=== PATIENT | female | born 1985 | race Caucasian/White ===

== ENCOUNTER 2019-04-07 14:25 | Emergency (ER) | payer BC ==
[2019-04-07 14:47] VITALS: BP 148/82; PULSE 60
--- NOTE | 2019-04-07 14:59 | EDM.PDOC ---
ED HPI GENERAL MEDICAL PROBLEM - General Chief Complaint: Lower Extremity Injury/Pain Stated Complaint: LEFT HIP INJURY Time Seen by Provider: 04/07/19 14:45 Source of Information: Reports: Patient History Limitations: Reports: No Limitations - History of Present Illness INITIAL COMMENTS - FREE TEXT/NARRATIVE: 33 YO WF presents to ER complaining of left hip pain after falling off while tubing in the [place] earlier today. Pt reports she let go of the tube and skipped across the [place] on her left side causing immediate pain and the sensation of swelling to the left hip and LLQ of her abdomen. Pt denies any other injuries. Pt denies shortness of breath, no chest pain, no head or neck pain. Pt able to ambulate into ER with difficulty. Pt complains of her left hip but has full active and passive ROM of hip without pain. Pt is tender on abdominal wall with pain on truck rotation or hip flexion on left side. Onset: Today Duration: Hour(s): (1) Location: Reports: Lower Extremity, Left Quality: Reports: Ache Severity: Severe Improves with: Reports: Rest Worsens with: Reports: Movement Context: Reports: Activity Associated Symptoms: Reports: No Other Symptoms. Denies: Chest Pain, Headaches , Nausea/Vomiting, Shortness of Breath Left Hip Pain Score (Numeric/FACES): 8 - Related Data Allergies Allergy/AdvReac Type Severity Reaction Status Date / Time No Known Allergies Allergy Verified 04/07/19 14:38 Home Meds: Home Meds Levothyroxine 75 mcg PO DAILY 04/07/19 [History] Meloxicam 15 mg PO DAILY 04/07/19 [History] Review of Systems - Review of Systems Review Of Systems: See Below Constitutional: Reports: No Symptoms Eyes: Reports: No Symptoms Ears: Reports: No Symptoms Nose: Reports: No Symptoms Mouth/Throat: Reports: No Symptoms Respiratory: Reports: No Symptoms Cardiovascular: Reports: No Symptoms GI/Abdominal: Reports: No Symptoms Genitourinary: Reports: No Symptoms Musculoskeletal: Reports: Leg Pain Skin: Reports: No Symptoms Neurological: Reports: No Symptoms Psychiatric: Reports: No Symptoms ED EXAM, GENERAL - Physical Exam Exam: See Below Exam Limited By: No Limitations General Appearance: Alert, WD/WN, Mild Distress Eye Exam: Bilateral Eye: PERRL Throat/Mouth: Normal Inspection, Normal Lips, Normal Teeth, Normal Gums, Normal Oropharynx, Normal Voice, No Airway Compromise Head: Atraumatic, Normocephalic Neck: Normal Inspection, Supple, Non-Tender, Full Range of Motion Respiratory/Chest: No Respiratory Distress, Lungs Clear, Normal Breath Sounds, No Accessory Muscle Use, Chest Non-Tender Cardiovascular: Normal Peripheral Pulses, Regular Rate, Rhythm, No Edema, No Gallop, No JVD, No Murmur, No Rub GI/Abdominal: Normal Bowel Sounds, Soft, No Organomegaly, No Distention, No Abnormal Bruit, No Mass, Guarding, Rebound, Tender (LLQ tenderness) Back Exam: Normal Inspection, Full Range of Motion, NT Extremities: Normal Inspection, Normal Range of Motion, Non-Tender, Normal Capillary Refill, No Pedal Edema Neurological: Alert, Oriented, CN II-XII Intact, Normal Cognition, Normal Gait, Normal Reflexes, No Motor/Sensory Deficits Psychiatric: Normal Affect, Normal Mood, Anxious Skin Exam: Warm, Dry, Intact, Normal Color, No Rash Lymphatic: No Adenopathy Course - Vital Signs Last Recorded V/S: Last Vital Signs Temp 36.9 C 04/07/19 14:41 Pulse 60 04/07/19 14:41 Resp 14 04/07/19 14:41 BP 148/82 H 04/07/19 14:41 Pulse Ox 97 04/07/19 14:41 - Orders/Labs/Meds Orders: Active Orders 24 hr Category Date Time Status Peripheral IV Care [RC] . DIRECTED Care 04/07/19 15:00 Active Acetaminophen/HYDROcodone [[place] 325-10 MG] Med 04/07/19 16:30 Once 10 tab PO ONETIME ONE Sodium Chloride 0.9% [Normal Saline] 50 ml Med 04/07/19 15:45 Active IV ASDIRECTED Sodium Chloride 0.9% [Saline Flush] Med 04/07/19 15:00 Active 10 ml FLUSH Q8HR PRN Peripheral IV Insertion Adult [OM.PC] Routine Oth 04/07/19 15:00 Ordered Medication Orders Hydrocodone Bitart/Acetaminophen ([place] 325-10 Mg) 10 tab PO ONETIME ONE Stop: 04/07/19 16:31 Sodium Chloride (Normal Saline) 50 mls @ 200 mls/hr IV ASDIRECTED TANNA Last Admin: 04/07/19 16:04 Dose: 200 mls/hr Sodium Chloride (Saline Flush) 10 ml FLUSH Q8HR PRN PRN Reason: keep vein open Last Admin: 04/07/19 15:10 Dose: 10 ml Admin: 04/07/19 15:00 Dose: 10 ml Labs: Laboratory Tests 04/07/19 04/07/19 04/07/19 Range/Units 15:25 15:47 15:47 WBC 9.81 (5.00-10.00) 10^3/uL RBC 3.85 (3.80-5.50) 10^6/uL Hgb 12.0 (12.0-16.0) g/dL Hct 35.6 L (37.0-47.0) % MCV 92.5 H (82.0-92.0) fL MCH 31.2 H (27.0-31.0) pg MCHC 33.7 (32.0-36.0) g/dL RDW 12.7 (11.5-14.5) % Plt Count 204 (150-400) 10^3/uL MPV 11.2 H (7.4-10.4) fL Immature Gran % (Auto) 0.2 (0.0-5.0) % Neut % (Auto) 67.5 (50.0-70.0) % Lymph % (Auto) 17.2 L (20.0-40.0) % [place] % (Auto) 5.9 (2.0-8.0) % Eos % (Auto) 8.8 H (1.0-3.0) % Baso % (Auto) 0.4 (0.0-1.0) % Immature Gran # (Auto) 0.02 (0.00-0.50) 10^3/uL Neut # (Auto) 6.62 (2.50-7.00) 10^3/uL Lymph # (Auto) 1.69 (1.00-4.00) 10^3/uL [place] # (Auto) 0.58 (0.10-0.80) 10^3/uL Eos # (Auto) 0.86 H (0.10-0.30) 10^3/uL Baso # (Auto) 0.04 (0.00-0.10) 10^3/uL Sodium 144 (136-145) mmol/L Potassium 3.9 (3.3-5.3) mmol/L Chloride 111 (98-115) mmol/L Carbon Dioxide 25.9 (21.0-32.0) mmol/L Anion Gap 11.0 (5-15) mmol/L BUN 10 (6-25) mg/dL Creatinine 0.68 (0.51-1.17) mg/dL Est Cr Clr Drug Dosing 92.20 mL/min Estimated GFR (MDRD) > 60 mL/min Glucose 97 (75 - 99) mg/dL Calcium 8.6 L (8.7-10.3) mg/dL Total Bilirubin 0.2 (0.2-1.0) mg/dL AST 74 H (15-37) U/L ALT 86 H (12-78) U/L Alkaline Phosphatase 74 (46-116) IU/L Total Protein 6.2 L (6.4-8.2) g/dL Albumin 3.51 (3.00-4.80) g/dL HCG, Qual Negative (NEGATIVE) Specimen Type Urinvoid Urine Color Light yellow (YELLOW) Urine Appearance Clear (CLEAR) Urine pH 6.5 (5.0-9.0) Ur Specific [place] <= 1.005 (1.005-1.030) Urine Protein Negative (NEGATIVE) mg/dL Urine Glucose (UA) Negative (NEGATIVE) mg/dL Urine Ketones Negative (NEGATIVE) mg/dL Urine Occult Blood Negative (NEGATIVE) Urine Nitrite Negative (NEGATIVE) Urine Bilirubin Negative (NEGATIVE) Urine Urobilinogen 0.2 (0.2-1.0) E.U./dL Ur Leukocyte Esterase Negative (NEGATIVE) Urine RBC 0-5 (0-5) /HPF Urine WBC 0-5 (0-5) /HPF Ur Epithelial Cells Moderate H /LPF Urine Bacteria Not seen (NONE TO FEW) /HPF Meds: Medications Generic Name Dose Route Start Last Admin Trade Name Freq PRN Reason Stop Dose Admin Hydrocodone Bitart/Acetaminophen 10 tab 04/07/19 16:30 [place] 325-10 Mg PO 04/07/19 16:31 ONETIME ONE Sodium Chloride 50 mls @ 200 mls/hr 04/07/19 15:45 04/07/19 16:04 Normal Saline IV 200 mls/hr ASDIRECTED TANNA Administration Sodium Chloride 10 ml 04/07/19 15:00 04/07/19 15:10 Saline Flush FLUSH 10 ml Q8HR PRN Administration keep vein open Discontinued Medications Generic Name Dose Route Start Last Admin Trade Name Sheldonq PRN Reason Stop Dose Admin Hydromorphone HCl 1 mg 04/07/19 15:04 04/07/19 15:08 Dilaudid IVPUSH 04/07/19 15:05 1 mg ONETIME ONE Administration Iopamidol 100 ml 04/07/19 15:35 04/07/19 16:04 Isovue-370 (76%) IV 04/07/19 15:36 75 ml ONETIME ONE Administration Ondansetron HCl 4 mg 04/07/19 15:04 04/07/19 15:05 Zofran IVPUSH 04/07/19 15:05 4 mg ONETIME ONE Administration - Radiology Interpretation Free Text/Narrative:: L-spine- NAD; no fx Pelvis- NAD; no fx L hip- NAD; no fx CT abd/pelvis- NAD Departure - Departure Time of Disposition: 16:35 Disposition: Home, Self-Care 01 Condition: Good Clinical Impression: Strain of abdominal wall Qualifiers: Encounter type: initial encounter Qualified Code(s): S39.011A - Strain of muscle, fascia and tendon of abdomen, initial encounter - Discharge Information Instructions: Pain Medicine Instructions, [id number], Muscle Strain, Easy-to- Read Referrals: Sonya Restrepo, MARKETING CONTENT COORDINATOR [Nurse Practitioner] - Forms: ED Department Discharge Additional Instructions: 1. discharge home 2. hydrocodone 10/325 1 tablet Q6 PRN 3. continue melxican 4. follow up in clinic early next week for recheck 5. return to ER fdor worsening symptoms 6. ice to hip- area may bruise - My Orders Last 24 Hours: My Active Orders 04/07/19 15:00 Peripheral IV Care [RC] . DIRECTED Sodium Chloride 0.9% [Saline Flush] 10 ml FLUSH Q8HR PRN Peripheral IV Insertion Adult [OM.PC] Routine 04/07/19 15:45 Sodium Chloride 0.9% [Normal Saline] 50 ml IV ASDIRECTED 04/07/19 16:30 Acetaminophen/HYDROcodone [[place] 325-10 MG] 10 tab PO ONETIME ONE - Assessment/Plan Last 24 Hours: My Active Orders 04/07/19 15:00 Peripheral IV Care [RC] . DIRECTED Sodium Chloride 0.9% [Saline Flush] 10 ml FLUSH Q8HR PRN Peripheral IV Insertion Adult [OM.PC] Routine 04/07/19 15:45 Sodium Chloride 0.9% [Normal Saline] 50 ml IV ASDIRECTED 04/07/19 16:30 Acetaminophen/HYDROcodone [[place] 325-10 MG] 10 tab PO ONETIME ONE Assessment:: 1. abdominal wall strain 2. elevated LFt's - pt aware and this has been addressed as outpatient in the recent past Plan: 1. discharge home 2. hydrocodone 10/325 1 tablet Q6 PRN 3. continue melxican 4. follow up in clinic early next week for recheck 5. return to ER fdor worsening symptoms 6. ice to hip- area may bruise
[2019-04-07] MEDS: Sodium Chloride 0.9% 10 ML Syringe FLUSH PRN ×2 (15:00→15:10)
[2019-04-07] MEDS ORDERED: Ondansetron 4 MG/2 ML SDV IVPUSH ONE (15:04)
[2019-04-07] MEDS ORDERED: HYDROmorphone 1 MG/ML Syringe IVPUSH ONE (15:04)
[2019-04-07] MEDS ORDERED: Iopamidol 755 Mg/ML 100 ML Bottle IV ONE (15:35)
--- NOTE | 2019-04-07 15:44 | CR ---
[id number] RAD/RAD Lumbar Spine 2-3V EXAM: AP AND LATERAL LUMBAR SPINE. INDICATION: Trauma COMPARISON: No previous similar exam is available for comparison. FINDINGS: No fracture or subluxation is seen. There is preservation of height of disc spaces and vertebrae. The pedicles are intact. IMPRESSION: No fracture or subluxation. Onofre Cabral MD 04/07/19 [id number] Thank you for allowing us to participate in the care of your patient.
--- NOTE | 2019-04-07 15:44 | CR ---
[id number] RAD/RAD Pelvis 1V W 2V Left Hip Exam: RAD Pelvis 1V W 2V Left Hip Clinical Data: TRAUMA COMPARISON: NO PREVIOUS SIMILAR EXAM IS AVAILABLE FINDINGS: No fracture or dislocation is seen. IMPRESSION: NEGATIVE EXAM Onofre Cabral MD 04/07/19 [id number] Thank you for allowing us to participate in the care of your patient.
[2019-04-07] MEDS ORDERED: Sodium Chloride 0.9% 50 ML IV SCH (15:45)
[2019-04-07 16:13] LABS: CHLORIDE,CL 111 mmol/L (98-115); SODIUM,NA 144 mmol/L (136-145)
--- NOTE | 2019-04-07 16:18 | CT ---
[id number] CT/CT Abdomen Pelvis W IV EXAM: CT Abdomen Pelvis W IV CLINICAL DATA: TRAUMA COMPARISON: NO PREVIOUS SIMILAR EXAM IS AVAILABLE. FINDINGS: The liver and spleen are unremarkable. The kidneys and adrenals show no abnormality. The aorta and pancreas are within normal limits. There is no bowel distention. There is no bowel wall thickening either. Minimal free fluid in pelvis is likely physiologic. The gallbladder and appendix are unremarkable. There is no adenopathy. The pelvis shows no mass, free fluid, abscess, inflammatory change, or adenopathy. Reformatted views of the lumbar spine and sacrum show no fracture. The bony pelvis shows no fracture. IMPRESSION: NO ACUTE PROCESS. Onofre Cabral MD 04/07/19 7732 Thank you for allowing us to participate in the care of your patient.
[2019-04-07] MEDS ORDERED: Acetaminophen/HYDROcodone 325-10 MG Tab PO ONE (16:30)
== END 2019-04-07 16:50 | disposition home or self-care (01) ==
LOC: KA.ED 14:25
DX: S39.011A Strain of muscle, fascia and tendon of abdomen, initial encounter (principal); R79.89 Other specified abnormal findings of blood chemistry; Z79.899 Other long term (current) drug therapy; W17.89XA Other fall from one level to another, initial encounter
CPT/HCPCS: 36415; 72100; 73502; 74177; 80053; 81001; 84703; 85025; 96374; 96375; 99284; A9270; J1170; J2405; J7050; Q9967

== ENCOUNTER 2020-05-23 10:19 | Emergency (ER) | payer BC ==
[2020-05-23] MEDS ORDERED: Sodium Chloride 0.9% 1,000 ML IV ONE (10:39)
--- NOTE | 2020-05-23 11:07 | EDM.PDOC ---
ED HPI GENERAL MEDICAL PROBLEM - General Chief Complaint: Headache Stated Complaint: HEADACHE/CHRONIC ABDOMINAL PAIN Time Seen by Provider: 05/23/20 10:50 Source of Information: Reports: Patient History Limitations: Reports: No Limitations - History of Present Illness INITIAL COMMENTS - FREE TEXT/NARRATIVE: 34 YO WF PRESENTS TO ER COMPLAINING OF HEADACHE WHICH BEGAN 2 WEEKS AGO. PT REPORTS PAIN HAS BEEN LOCATED TO THE RIGHT TEMPORAL REGION AND STATES IT HAS BEEN TENDER TO TOUCH. PT REPORTS HISTORY OF ANKYLOSING SPONDYLITIS AND WAS TAKEN OFF HER HUMARA DUE TO ELEVATED LIVER ENZYMES. PT IS SUPPOSE TO START NEW MEDICATION BUT IS AWAITING LIVER BIOPSY. PT REPORTS SOME MID RUQ ABDOMINAL PAIN WITH ASSOCIATED NAUSEA. PT DENIES FEVER/CHILLS, NO COUGH/CONGESTION, NO VOMITING/DIARRHEA. PT REPORTS NO VISUAL CHANGES, NO PAIN TO EYE, NO DIZZINESS OR LIGHTHEADED NOTED. Duration: Day(s): (10) Location: Reports: Head Quality: Reports: Ache Severity: Mild Improves with: Reports: None Worsens with: Reports: None Associated Symptoms: Reports: No Other Symptoms, Headaches, Nausea/Vomiting. Denies: Confusion, Chest Pain, Cough, cough w sputum, Fever/Chills, Rash, Shortness of Breath, Syncope, Weakness Right Lower Abdomen Pain Score (Numeric/FACES): 4 HEADACHE RIGHT TEMPORAL Pain Score (Numeric/FACES): 7 - Related Data Allergies Allergy/AdvReac Type Severity Reaction Status Date / Time No Known Allergies Allergy Verified 05/23/20 10:38 Home Meds: Home Meds Levothyroxine 75 mcg PO DAILY 04/07/19 [History] predniSONE [Prednisone] 20 mg PO DAILY #15 tablet 05/23/20 [Rx] Past Medical History Musculoskeletal History: Reports: RA - Past Surgical History Head Surgeries/Procedures: Reports: None Social & Family History - Tobacco Use Smoking Status *Q: Never Smoker - Caffeine Use Caffeine Use: Reports: Coffee - Recreational Drug Use Recreational Drug Use: No ED ROS GENERAL - Review of Systems Review Of Systems: See Below Constitutional: Reports: No Symptoms HEENT: Reports: No Symptoms. Denies: Vision Change Respiratory: Reports: No Symptoms Cardiovascular: Reports: No Symptoms Endocrine: Reports: No Symptoms GI/Abdominal: Reports: Abdominal Pain, Nausea : Reports: No Symptoms Musculoskeletal: Reports: No Symptoms Skin: Reports: No Symptoms Neurological: Reports: Headache. Denies: Confusion, Dizziness, Numbness, Paresthesia, Pre-Existing Deficit, Syncope, Trouble Speaking, Difficulty Walking, Weakness, Change in Speech, Gait Disturbance Psychiatric: Reports: No Symptoms Hematologic/Lymphatic: Reports: No Symptoms Immunologic: Reports: No Symptoms - Physical Exam Exam: See Below Exam Limited By: No Limitations General Appearance: Alert, WD/WN, No Apparent Distress Eye Exam: Bilateral Eye: EOMI, PERRL, Vision Changes Ears: Normal External Exam, Normal Canal, Hearing Grossly Normal, Normal TMs Nose: Normal Inspection, Normal Mucosa, No Blood Throat/Mouth: Normal Inspection, Normal Lips, Normal Teeth, Normal Gums, Normal Oropharynx, Normal Voice, No Airway Compromise Head Exam: Atraumatic, Normocephalic Neck: Normal Inspection, Supple, Non-Tender, Full Range of Motion Respiratory/Chest: No Respiratory Distress, Lungs Clear, Normal Breath Sounds, No Accessory Muscle Use, Chest Non-Tender Cardiovascular: Normal Peripheral Pulses, Regular Rate, Rhythm, No Edema, No Gallop, No JVD, No Murmur, No Rub GI/Abdominal: Normal Bowel Sounds, Soft, Non-Tender, No Organomegaly, No Distention, No Abnormal Bruit, No Mass Neuro Exam (Abbreviated): Alert, Oriented, CN II-XII Intact, Normal Cognition, Normal Gait, Normal Reflexes, No Motor/Sensory Deficits Back Exam: Normal Inspection, Full Range of Motion, NT Extremities: Normal Inspection, Normal Range of Motion, Non-Tender, No Pedal Edema, Normal Capillary Refill Psychiatric: Normal Affect, Normal Mood Skin Exam: Warm, Dry, Intact, Normal Color, No Rash Course - Vital Signs Last Recorded V/S: Last Vital Signs Temp 36.6 C 05/23/20 11:49 Pulse 53 L 05/23/20 11:49 Resp 14 05/23/20 11:49 BP 118/64 05/23/20 11:49 Pulse Ox 98 05/23/20 11:49 - Orders/Labs/Meds Orders: Active Orders 24 hr Category Date Time Status Visual Acuity [Vision Test] [RC] ASDIRECTED Care 05/23/20 11:26 Active Labs: Laboratory Tests 05/23/20 05/23/20 05/23/20 Range/Units 10:45 10:45 10:45 WBC 5.80 (5.00-10.00) 10^3/uL RBC 4.17 (3.80-5.50) 10^6/uL Hgb 12.7 (12.0-16.0) g/dL Hct 38.2 (37.0-47.0) % MCV 91.6 (82.0-92.0) fL MCH 30.5 (27.0-31.0) pg MCHC 33.2 (32.0-36.0) g/dL RDW 12.1 (11.5-14.5) % Plt Count 256 (150-400) 10^3/uL MPV 11.0 H (7.4-10.4) fL Immature Gran % (Auto) 0.0 (0.0-5.0) % Neut % (Auto) 56.0 (50.0-70.0) % Lymph % (Auto) 29.5 (20.0-40.0) % [place] % (Auto) 5.9 (2.0-8.0) % Eos % (Auto) 7.9 H (1.0-3.0) % Baso % (Auto) 0.7 (0.0-1.0) % Neut # (Auto) 3.25 (2.50-7.00) 10^3/uL Lymph # (Auto) 1.71 (1.00-4.00) 10^3/uL [place] # (Auto) 0.34 (0.10-0.80) 10^3/uL Eos # (Auto) 0.46 H (0.10-0.30) 10^3/uL Baso # (Auto) 0.04 (0.00-0.10) 10^3/uL Immature Gran # (Auto) 0.00 (0.00-0.50) 10^3/uL ESR (0-20) mm/hr Sodium 142 (136-145) mmol/L Potassium 4.7 (3.3-5.3) mmol/L Chloride 104 (98-115) mmol/L Carbon Dioxide 28.2 (21.0-32.0) mmol/L Anion Gap 14.5 (5-15) mmol/L BUN 11 (6-25) mg/dL Creatinine 0.71 (0.51-1.17) mg/dL Est Cr Clr Drug Dosing 87.47 mL/min Estimated GFR (MDRD) > 60 mL/min Glucose 82 (75 - 99) mg/dL Calcium 8.8 (8.7-10.3) mg/dL Total Bilirubin 0.6 (0.2-1.0) mg/dL AST 143 H (15-37) U/L ALT 261 H (12-78) U/L Alkaline Phosphatase 406 H (46-116) IU/L Total Protein 7.7 (6.4-8.2) g/dL Albumin 3.94 (3.00-4.80) g/dL Lipase 98 (73-393) U/L HCG, Qual Negative (NEGATIVE) Specimen Type Urincc Urine Color Yellow (YELLOW) Urine Appearance Clear (CLEAR) Urine pH 6.5 (5.0-9.0) Ur Specific [place] 1.010 (1.005-1.030) Urine Protein Negative (NEGATIVE) mg/dL Urine Glucose (UA) Negative (NEGATIVE) mg/dL Urine Ketones Negative (NEGATIVE) mg/dL Urine Occult Blood Negative (NEGATIVE) Urine Nitrite Negative (NEGATIVE) Urine Bilirubin Negative (NEGATIVE) Urine Urobilinogen 0.2 (0.2-1.0) E.U./dL Ur Leukocyte Esterase Negative (NEGATIVE) 05/23/20 Range/Units 10:45 WBC (5.00-10.00) 10^3/uL RBC (3.80-5.50) 10^6/uL Hgb (12.0-16.0) g/dL Hct (37.0-47.0) % MCV (82.0-92.0) fL MCH (27.0-31.0) pg MCHC (32.0-36.0) g/dL RDW (11.5-14.5) % Plt Count (150-400) 10^3/uL MPV (7.4-10.4) fL Immature Gran % (Auto) (0.0-5.0) % Neut % (Auto) (50.0-70.0) % Lymph % (Auto) (20.0-40.0) % [place] % (Auto) (2.0-8.0) % Eos % (Auto) (1.0-3.0) % Baso % (Auto) (0.0-1.0) % Neut # (Auto) (2.50-7.00) 10^3/uL Lymph # (Auto) (1.00-4.00) 10^3/uL [place] # (Auto) (0.10-0.80) 10^3/uL Eos # (Auto) (0.10-0.30) 10^3/uL Baso # (Auto) (0.00-0.10) 10^3/uL Immature Gran # (Auto) (0.00-0.50) 10^3/uL ESR 16 (0-20) mm/hr Sodium (136-145) mmol/L Potassium (3.3-5.3) mmol/L Chloride (98-115) mmol/L Carbon Dioxide (21.0-32.0) mmol/L Anion Gap (5-15) mmol/L BUN (6-25) mg/dL Creatinine (0.51-1.17) mg/dL Est Cr Clr Drug Dosing mL/min Estimated GFR (MDRD) mL/min Glucose (75 - 99) mg/dL Calcium (8.7-10.3) mg/dL Total Bilirubin (0.2-1.0) mg/dL AST (15-37) U/L ALT (12-78) U/L Alkaline Phosphatase (46-116) IU/L Total Protein (6.4-8.2) g/dL Albumin (3.00-4.80) g/dL Lipase (73-393) U/L HCG, Qual (NEGATIVE) Specimen Type Urine Color (YELLOW) Urine Appearance (CLEAR) Urine pH (5.0-9.0) Ur Specific [place] (1.005-1.030) Urine Protein (NEGATIVE) mg/dL Urine Glucose (UA) (NEGATIVE) mg/dL Urine Ketones (NEGATIVE) mg/dL Urine Occult Blood (NEGATIVE) Urine Nitrite (NEGATIVE) Urine Bilirubin (NEGATIVE) Urine Urobilinogen (0.2-1.0) E.U./dL Ur Leukocyte Esterase (NEGATIVE) Meds: Medications Discontinued Medications Generic Name Dose Route Start Last Admin Trade Name Freq PRN Reason Stop Dose Admin Sodium Chloride 1,000 mls @ 999 mls/hr 05/23/20 10:39 05/23/20 10:53 Normal Saline IV 05/23/20 11:39 999 mls/hr .BOLUS ONE Administration Ketorolac Tromethamine 30 mg 05/23/20 11:08 08/21/20 11:34 Toradol IVPUSH 05/23/20 11:09 30 mg ONETIME ONE Administration Ondansetron HCl 4 mg 05/23/20 11:08 05/23/20 11:20 Zofran IVPUSH 05/23/20 11:09 4 mg ONETIME ONE Administration - Radiology Interpretation Free Text/Narrative:: CT Head- NAD - Re-Assessments/Exams Free Text/Narrative Re-Assessment/Exam: 05/23/20 12:13 DISCUSSED NEED FOR FOLLOW UP FOR FURTHER EVALUATION AND POSSIBLE TEMPORAL ARTERY BIOPSY IF SYMPTOMS CONTINUE. INSTRUCTED PATIENT TO FOLLOW UP WITH NEUROLOGY- [facility] FOR FURTHER EVALUATION AND TREATMENT. PT DENIES VISUAL CHANGES, SEVERE HEADACHE, FEVER/CHILLS OR DIZZINESS. PT REPORTS PAIN IMPROVED AFTER TORADOL. WILL START PATIENT ON PREDNISONE 60MG DAILY X 5 DAYS. Departure - Departure Time of Disposition: 12:23 Disposition: Home, Self-Care 01 Condition: Good Clinical Impression: Headache Qualifiers: Headache chronicity pattern: acute headache Intractability: not intractable - Discharge Information Prescriptions: predniSONE [Prednisone] 20 mg PO DAILY #15 tablet Instructions: General Headache Without Cause Referrals: Huong Dixon ELECTRICAL APPLIANCE PREPARER [Primary Care Provider] - Forms: ED Department Discharge Additional Instructions: 1. DISCHARGE HOME 2. PREDNISONE 60MG DAILY X 5 DAYS 3. FOLLOW UP WITH [facility] [phone] FOR FURTHER EVALUATION AND TREATMENT 4. RETURN TO ER FOR WORSENING SYMPTOMS 5. OFF WORK TODAY Sepsis Event Note (ED) - Evaluation Sepsis Screening Result: No Definite Risk - Focused Exam Vital Signs: Vital Signs Temp Pulse Resp BP Pulse Ox 05/23/20 11:49 36.6 C 53 L 14 118/64 98 05/23/20 10:27 36.8 C 68 16 125/84 99 - My Orders Last 24 Hours: My Active Orders 05/23/20 11:26 Visual Acuity [Vision Test] [RC] ASDIRECTED - Assessment/Plan Last 24 Hours: My Active Orders 05/23/20 11:26 Visual Acuity [Vision Test] [RC] ASDIRECTED Assessment:: 1. RIGHT SIDED TEMPORAL HEADACHE 2. ELEVATED LIVER ENZYMES- BIOPSY NEXT WEEK OUTPATIENT Plan: 1. DISCHARGE HOME 2. PREDNISONE 60MG DAILY X 5 DAYS 3. FOLLOW UP WITH [facility] [phone] FOR FURTHER EVALUATION AND TREATMENT 4. RETURN TO ER FOR WORSENING SYMPTOMS 5. OFF WORK TODAY
[2020-05-23] MEDS ORDERED: Ondansetron 4 MG/2 ML SDV IVPUSH ONE (11:08)
[2020-05-23] MEDS ORDERED: Ketorolac 30 MG/ML SDV IVPUSH ONE (11:08)
[2020-05-23 11:21] LABS: ANION GAP 14.5 mmol/L (5-15); CHLORIDE,CL 104 mmol/L (98-115); SODIUM,NA 142 mmol/L (136-145)
[2020-05-23 11:50] VITALS: BP 118/64; PULSE 53
--- NOTE | 2020-05-23 11:58 | CT ---
[id number] CT/CT Head WO IV EXAM: NONCONTRAST HEAD CT INDICATION: PAIN. COMPARISON: None. DISCUSSION: The ventricles and sulci are normal in size and configuration. The soliz and white matter are normal in attenuation. No mass effect or midline shift. No acute hemorrhage or extra-axial fluid collection. No acute territorial infarct is identified. Mild to moderate paranasal sinus mucosal thickening. IMPRESSION: 1. Moderate paranasal sinus mucosal thickening. 2. No acute intracranial findings. Viktor Toussaint MD 05/23/20 1416 Thank you for allowing us to participate in the care of your patient.
== END 2020-05-23 12:43 | disposition home or self-care (01) ==
LOC: KA.ED 10:19
DX: R51 Headache (principal)
CPT/HCPCS: 36415; 70450; 80053; 81003; 83690; 84703; 85025; 85651; 96361; 96374; 96375; 99284; 99284-25; J1885; J2405; J7030